=== PATIENT | male | born 1990 | race Caucasian/White ===

== ENCOUNTER 2023-12-11 04:53 | Emergency (ER) | payer MEDICAID ==
[~2023-12-11] VITALS: Ht 182.9 cm; Wt 92.0 kg
[2023-12-11 04:58] VITALS: O2SAT 98
[2023-12-11] MEDS: ACETAMINOPHEN 325MG TABLET PO ONE (06:09)
[2023-12-11] MEDS ORDERED: TOPUD PO (07:12)
[2023-12-11 07:27] VITALS: BP 139/68; PULSE 90; RESP 18; TEMP 98.6
== END 2023-12-11 07:28 | disposition home or self-care (01) ==
LOC: ER 05:10
DX: S00.83XA Contusion of other part of head, initial encounter (principal); X58.XXXA Exposure to other specified factors, initial encounter; Y93.89 Activity, other specified; Y92.89 Other specified places as the place of occurrence of the external cause; Y99.8 Other external cause status
CPT/HCPCS: 70486; 99284